=== PATIENT | male | born 1950 | race Caucasian/White ===

== ENCOUNTER 2019-01-25 07:37 | Outpatient (CLI) | payer BC ==
--- NOTE | 2019-01-25 08:39 | ULT ---
Exam: Right upper quadrant ultrasound: HISTORY: Right upper quadrant pain COMPARISON: CT, 01/26/2015 FINDINGS: Visualized liver:2.4 x 2.7 cm solid septated left lobe of liver cyst. Gallbladder:Multiple gallstones with some gallbladder wall thickening. Common bile duct:Within normal limits. Visualized pancreas is unremarkable. Multiple hypodensities noted involving the right kidney evidence for cysts including a complicated septated cyst in the mid kidney and what appears to be an old scar. No evidence for abscess or abnormal fluid collection in the right upper quadrant. IMPRESSION: Multiple cholelithiasis with some gallbladder wall thickening. No ductal dilatation. Liver and right renal cysts.
== END 2019-01-25 07:38 | disposition home or self-care (01) ==
LOC: ULT 07:37
PROVIDERS: ATTEND Internal Medicine
DX: R10.11 Right upper quadrant pain (principal); K80.20 Calculus of gallbladder without cholecystitis without obstruction; K82.8 Other specified diseases of gallbladder; N28.1 Cyst of kidney, acquired; K76.89 Other specified diseases of liver
CPT/HCPCS: 76705

== ENCOUNTER 2019-03-01 13:53 | Outpatient (CLI) | payer BC ==
[2019-03-01 15:28] LABS: #Eosinphils 0.1 thou/uL (0.0-0.7); #Lymphocytes 1.1 thou/uL (1.20-3.40); #Monocytes 0.6 thou/uL (0.11-0.59); #Neutrophils 6.1 thou/uL (1.40-6.50); %Basophils 0.4 % (0.0-1.0); %Eosinophils 0.9 % (0.0-10.0); %Lymphocytes 13.5 % (21.0-51.0); %Monocytes 7.2 % (0.0-10.0); Hemoglobin 14.2 g/dL (14.0-18.0); Mean Corpuscular HGB CONC 33.6 g/dL (32.0-36.0); Mean Corpuscular Hemoglobin 31.4 pg (27.0-31.0); Mean Corpuscular Volume 93.5 fL (78.0-98.0); Mean Platelet Volume 8.1 fL (7.4-10.4); Platelet Count 192 thou/uL (130-400); RBC Distribution Width 12.7 % (11.5-14.5); Red Blood Cell (RBC) Count 4.53 mill/uL (4.70-6.10); White Blood Cell (WBC) Count 7.8 thou/uL (4.8-10.8)
--- NOTE | 2019-03-01 15:39 | RAD ---
PA AND LATERAL VIEWS CHEST: Date: 03/01/19 HISTORY: Preoperative evaluation. FINDINGS: The heart size is normal. The aorta is tortuous. The lungs are expanded without focal areas of consol idation, pneumothoraces, or pleural effusions. There are degenerative changes in the spine. IMPRESSION: No radiographic evidence of acute cardiopulmonary process. POS: [facility]
[2019-03-01 15:46] LABS: ALT (SGPT) 25 U/L (8-55); AST (SGOT) 22 U/L (5-34); Albumin 4.3 g/dL (3.4-4.8); Alkaline Phosphatase 81 U/L (40-150); Anion Gap 13 mmol/L (10-20); BUN (Urea Nitrogen) 15 mg/dL (8.4-25.7); Bilirubin, Total 1.1 mg/dL (0.2-1.2); Calc. Creatinine Clearance 0 mL/min (70-130); Calcium 9.3 mg/dL (7.8-10.44); Carbon Dioxide 22 mmol/L (23-31); Chloride 107 mmol/L (98-107); Estimated GFR-MDRD 71; Globulin 2.4 g/dL (2.4-3.5); Glucose 99 mg/dL (80-115); Potassium 3.8 mmol/L (3.5-5.1); Protein, Total 6.7 g/dL (5.8-8.1); Sodium 138 mmol/L (136-145)
--- NOTE | 2019-03-03 13:15 | EKG ---
Test Reason : Blood Pressure : / mmHG Vent. Rate : 065 BPM Atrial Rate : 065 BPM P-R Int : 162 ms QRS Dur : 140 ms QT Int : 440 ms P-R-T Axes : 040 057 -01 degrees QTc Int : 457 ms Normal sinus rhythm Left bundle branch block Abnormal ECG When compared with ECG of 10-OCT-2016 03:33, Premature atrial complexes are no longer Present Left bundle branch block is now Present Confirmed by MELISSA GARCIA (2) on 03/03/2019 1:14:44 PM Referred By: CHARLA Confirmed By:MELISSA GARCIA
== END 2019-03-01 13:54 | disposition home or self-care (01) ==
LOC: LABBT 13:53
PROVIDERS: ATTEND Specialist
DX: Z01.818 Encounter for other preprocedural examination (principal); K80.20 Calculus of gallbladder without cholecystitis without obstruction
CPT/HCPCS: 71046; 80053; 85025; 93005; 93010

== ENCOUNTER 2019-03-04 07:21 | Day surgery (SDC) | payer BC ==
[2019-03-01 14:37] VITALS: BMI 25.7
[2019-03-04] MEDS ORDERED: Ketorolac Tromethamine 30 MG/ML VIAL ONE (07:49)
[2019-03-04] MEDS ORDERED: ceFAZolin Sodium (SDC) 2 GM/100 ML BAG ONE (07:49)
[2019-03-04] MEDS ORDERED: Bupivacaine/Epinephrine 0.25% 30 ML VIAL ONE (08:38)
[2019-03-04] MEDS ORDERED: Fentanyl 100 MCG/2 ML VIAL ONE (09:04)
[2019-03-04] MEDS ORDERED: SUGAMMADEX SODIUM 200 MG/2 ML VIAL ONE (10:23)
--- NOTE | 2019-03-04 20:20 | OP ---
DATE OF PROCEDURE: 03/04/2019 PREOPERATIVE DIAGNOSIS: Symptomatic cholelithiasis. POSTOPERATIVE DIAGNOSIS: Symptomatic cholelithiasis. PROCEDURE PERFORMED: Laparoscopic cholecystectomy. AUDIT [employer]ERKS SUPERVISOR: Flynn Shah, medical student. ANESTHESIA: General endotracheal. INDICATIONS: The patient is a 68-year-old white male. He presents with symptoms referable to his gallbladder and ultrasound-proven cholelithiasis. He is taken to the operative room at this time for laparoscopic cholecystectomy. DESCRIPTION OF OPERATION: Informed consent was obtained. The patient was taken to the operating room where general endotracheal anesthesia was obtained with the patient in the supine position. The abdomen was prepped with Betadine and draped in the usual sterile fashion. 0.25% Marcaine with epinephrine was infiltrated below the umbilicus and a 10 mm infraumbilical incision was created. A Veress needle was passed through this incision into the peritoneal cavity. A pneumoperitoneum was established using carbon dioxide up to a pressure of 15 mmHg. Local anesthetic was infiltrated and 3 additional 5 mm right upper quadrant incisions were created. Through the mid incision, a 5 mm port was passed into the peritoneal cavity. The camera was passed through this port and under direct vision, an 11 port was passed through the infraumbilical incision. The camera was replaced through this port, and under direct vision, 2 additional 5 mm ports were passed through the incisions already created. The gallbladder was grasped and retracted in a cephalad direction. Minimal adhesions were bluntly stripped away from the apex of the gallbladder, and the apex was retracted laterally and inferiorly. Careful dissection was carried out to the apex of the gallbladder to identify the cystic duct and cystic artery. These were each carefully dissected circumferentially. The duct was of normal caliber. Both the duct and the artery were divided between clips, leaving 2 on the side to remain within the abdomen. The gallbladder was then dissected out of the gallbladder fossa using electrocautery and removed through the infraumbilical port site. The fascia was closed with 0 Vicryl suture and a GraNee needle. The right upper quadrant was inspected and irrigated. All irrigant was aspirated. All ports and instruments were removed under direct vision. Pneumoperitoneum was carefully evacuated. Additional local anesthetic was infiltrated into each port site. The skin edges were approximated with 4-0 Monocryl subcuticular sutures, and Dermabond was placed externally. There were no complications. The patient tolerated the procedure well and was taken to the recovery room in stable condition. FINDINGS: The patient had a sclerotic thickened gallbladder with numerous gallstones. The duct was small and noninflamed. His preoperative liver function tests were within normal limits. Cholangiogram was not obtained. The operation was performed without difficulty, blood loss, or complications. The patient tolerated the procedure well, was taken to recovery room in stable condition. Job ID: [id number]
== END 2019-03-04 12:45 | disposition home or self-care (01) ==
LOC: SDC 07:21
PROVIDERS: ATTEND Specialist
PROC: 0FT44ZZ Resection of Gallbladder, Percutaneous Endoscopic Approach (ICD-10-PCS; principal; 2019-03-04)
DX: K80.10 Calculus of gallbladder with chronic cholecystitis without obstruction (principal); I10 Essential (primary) hypertension; J45.909 Unspecified asthma, uncomplicated; G43.909 Migraine, unspecified, not intractable, without status migrainosus; Z87.891 Personal history of nicotine dependence; Z79.899 Other long term (current) drug therapy
CPT/HCPCS: 88304; J0131; J0690; J1885; J3010

== ENCOUNTER 2019-08-24 01:12 | Observation (INO) | payer BC ==
[2019-08-24 01:33] LABS: #Basophils 0.1 thou/uL (0.0-0.2); #Eosinphils 0.2 thou/uL (0.0-0.7); #Lymphocytes 1.9 thou/uL (1.20-3.40); #Monocytes 0.7 thou/uL (0.11-0.59); #Neutrophils 5.6 thou/uL (1.40-6.50); %Basophils 1.2 % (0.0-1.0); %Eosinophils 2.8 % (0.0-10.0); %Lymphocytes 22.6 % (21.0-51.0); %Neutrophils 65.4 % (42.0-75.0); Hemoglobin 15.9 g/dL (14.0-18.0); Mean Corpuscular HGB CONC 33.5 g/dL (32.0-36.0); Mean Corpuscular Hemoglobin 31.5 pg (27.0-31.0); Mean Platelet Volume 8.4 fL (7.4-10.4); Platelet Count 200 thou/uL (130-400); RBC Distribution Width 12.3 % (11.5-14.5); Red Blood Cell (RBC) Count 5.03 mill/uL (4.70-6.10); White Blood Cell (WBC) Count 8.5 thou/uL (4.8-10.8)
[2019-08-24] MEDS ORDERED: Aspirin Chewable 81 MG TAB ONE (01:42)
[2019-08-24 01:52] LABS: ALT (SGPT) 29 U/L (8-55); AST (SGOT) 26 U/L (5-34); Albumin 4.5 g/dL (3.4-4.8); Alkaline Phosphatase 114 U/L (40-110); Anion Gap 12 mmol/L (10-20); BUN (Urea Nitrogen) 15 mg/dL (8.4-25.7); Bilirubin, Total 0.8 mg/dL (0.2-1.2); CK (CPK) 165 U/L (30-200); Calc. Creatinine Clearance 0 mL/min (70-130); Calcium 9.3 mg/dL (7.8-10.44); Carbon Dioxide 27 mmol/L (23-31); Chloride 107 mmol/L (98-107); Estimated GFR-MDRD 68; Globulin 2.8 g/dL (2.4-3.5); Glucose 92 mg/dL (80-115); Lipase 43 U/L (8-78); Potassium 3.5 mmol/L (3.5-5.1); Protein, Total 7.3 g/dL (5.8-8.1); Sodium 142 mmol/L (136-145)
[2019-08-24] MEDS ORDERED: Nitroglycerin 2% Ointment 1 INCH/1 GM Packet ONE (02:27)
[2019-08-24] MEDS ORDERED: Bisacodyl 5 MG TAB PO PRN (02:43)
[2019-08-24] MEDS ORDERED: Acetaminophen 325 MG TAB PO PRN (02:43)
[2019-08-24] MEDS ORDERED: Loratadine 10 MG TAB PO PRN (03:03)
--- NOTE | 2019-08-24 03:50 | HP ---
PRIMARY CARE PROVIDER: Dr. Brandon North. CHIEF COMPLAINT: Palpitations. HISTORY OF PRESENT ILLNESS: Mr. Winn is a pleasant 69-year-old gentleman, who was seen at [facility] on August 24, 2019. He reports that he had a normal coronary angiogram in 2007. He reports that he has had tachycardia over the last 2 years and has been started on a beta mickey. He reports that he has continued to have palpitations especially at nighttime after lying down for a few hours. He wakes up and after 15 minutes, the palpitations resolve. Over the last week, his palpitations have been more frequent. He has been checking his pulse on the pulse oximeter and found that his heart rate was rapidly fluctuating and there was skipped beats. He also reports chronic postnasal drip and cough at night. He denies any chest pain. He reports that he had some epigastric discomfort in the past, but not now. He also reports chest tightness in the past, but not in several months. He also reports waking up with bilateral feet numbness. REVIEW OF SYSTEMS: All systems were reviewed and found to be negative except for the pertinent positives mentioned above. PAST MEDICAL HISTORY: Hypertension. PAST SURGICAL HISTORY: Cholecystectomy, deviated nasal septum surgery and umbilical hernia surgery. FAMILY HISTORY: No family history of premature coronary artery disease. SOCIAL HISTORY: He is an ex-smoker. He denies alcohol use and recreational drug use. ALLERGIES: NO KNOWN DRUG ALLERGIES. CURRENT MEDICATIONS: 1. Losartan 100 mg daily. 2. Bisoprolol fumarate 10 mg daily inhaler. 3. Josy 180 mg daily. PHYSICAL EXAMINATION: GENERAL: On examination, Mr. Winn is awake and alert, not in acute distress. VITAL SIGNS: Blood pressure is 159/100, pulse 75, respiratory rate 14, and oxygen saturation 96% on room air. He is afebrile. EYES: No scleral icterus, no conjunctival pallor. ENT: Moist mucosal membranes. No oropharyngeal erythema or exudates. NECK: Supple, nontender, trachea is midline. RESPIRATORY: Accessory muscles of breathing are not active. Chest wall movements are symmetric bilaterally. LUNGS: Clear to auscultation without wheeze, rhonchi, or crepitations. CARDIOVASCULAR: S1 and S2 are heard, regular. Peripheral pulses palpable. ABDOMEN: Soft, nontender, bowel sounds are heard. NEUROLOGIC: Cranial nerves 2 through 12 are intact. MUSCULOSKELETAL: Power is 5/5 in all 4 extremities. SKIN: No rashes. LYMPHATIC: No cervical lymphadenopathy. PSYCHIATRIC: Normal mood, normal affect, the patient is oriented to person, place, and time. LABORATORY DATA: Mr. Winn's labs and investigations were reviewed. A 12-lead electrocardiogram shows normal sinus rhythm, no ST changes to suggest an acute coronary syndrome and premature ventricular complexes. Chest x-ray does not show any pulmonary infiltrates. He has an unremarkable CBC, D-dimer less than 0.27, mildly elevated alkaline phosphatase of 114, otherwise normal comprehensive metabolic profile and normal TSH. BNP and first troponin I are normal. ASSESSMENT AND PLAN: Mr. Winn is a pleasant 69-year-old gentleman, who was seen at [facility] on August 24, 2019. His problem list includes: 1. Palpitations: Etiology is unclear, he mainly describes them as occurring at nighttime. So far, he has had premature ventricular complexes, but no other arrhythmias have been picked up in the emergency room. He will be admitted to the hospital for further management. I will request 2D echocardiogram and Cardiology Service consultation. He may need further investigations down the road such as heart monitor. The patient currently denies any chest pain. Repeat troponins are pending. 2. Hypertension: Resume home medications, monitor vital signs and titrate antihypertensives as needed. 3. Elevated alkaline phosphatase: Mild elevation of alkaline phosphatase, will need to be rechecked as outpatient. LEVEL OF RISK: Moderate. LEVEL OF COMPLEXITY: Moderate. Many thanks for allowing me to participate in your patient's care. Please feel free to contact me with any questions or concerns. Job ID: [id number]
[2019-08-24 04:18] VITALS: BMI 26.5
[2019-08-24 05:05] LABS: Troponin I 0.013 ng/mL (< 0.028)
--- NOTE | 2019-08-24 07:37 | RAD ---
EXAM: Single view of the chest HISTORY: Chest pain COMPARISON: 10/10/2016 FINDINGS: Single view of the chest shows a normal sized cardiomediastinal silhouette. There is no dori dence of consolidation, mass, or pleural effusion. Degenerative changes are seen in the spine. IMPRESSION: No evidence of acute cardiopulmonary disease
[2019-08-24 08:08] LABS: Troponin I 0.012 ng/mL (< 0.028)
[2019-08-24] MEDS ORDERED: Bisoprolol Fumarate 5 MG TAB PO SCH (09:00)
[2019-08-24] MEDS: Losartan 25 MG TAB PO SCH (10:39)
[2019-08-24] MEDS ORDERED: Aspirin/APAP/Caffeine Tab (Excedrin Migraine) PO PRN ×2 (10:53→11:11)
--- NOTE | 2019-08-24 17:36 | PDOC.HOSPP ---
- Subjective Encounter Date: 08/24/19 Encounter Time: 17:25 Subjective: f/u for tachycardia and palpitations. Unclear etiology and telemetry not showing any evidence currently. No current sx. - Objective Vital Signs & Weight: Vital Signs (12 hours) Temp Pulse Resp BP BP Pulse Ox 08/24/19 15:25 98.9 F 61 19 141/81 H 98 08/24/19 11:15 98.2 F 72 19 127/72 98 08/24/19 10:42 97 08/24/19 08:00 97.6 F 66 18 125/74 125/74 97 Weight Weight 206 lb 9.6 oz I&O: 08/23/19 08/24/19 08/25/19 06:59 06:59 06:59 Intake Total 250 240 Balance 250 240 Result Diagrams: 08/24/19 01:24 08/24/19 01:24 Additional Labs: Laboratory Tests 08/24/19 08/24/19 08/24/19 01:24 01:24 01:24 Troponin I Less than 0.010 B-Natriuretic Peptide 84.0 TSH 3rd Generation 4.5852 08/24/19 08/24/19 04:25 07:18 Troponin I 0.013 0.012 B-Natriuretic Peptide TSH 3rd Generation Radiology Reviewed by me: Yes (Echo - EF 55-60%) EKG Reviewed by me: Yes (Tele - SR) Hospitalist ROS - Medication Medications: Active Medications Generic Name Dose Route Start Last Admin Trade Name Freq PRN Reason Stop Dose Admin Acetaminophen/Aspirin/Caffeine 2 tab 08/24/19 11:11 08/24/19 11:29 Excedrin Migraine PO 2 tab Q6H PRN Administration Migraine Headache Losartan Potassium 100 mg 08/24/19 09:00 08/24/19 10:39 Cozaar PO 100 mg DAILY AMEENA Administration - Exam General Appearance: NAD, awake alert Eye: PERRL, anicteric sclera ENT: normocephalic atraumatic, no oropharyngeal lesions Neck: supple, symmetric, no JVD, no thyromegaly, no lymphadenopathy Heart: RRR, no murmur, no gallops, no rubs, normal peripheral pulses Respiratory: CTAB, no wheezes, no rales, no ronchi, normal chest expansion Gastrointestinal: soft, non-tender, non-distended, normal bowel sounds, no palpable masses Extremities: no cyanosis, no clubbing, no edema Skin: normal turgor, no lesions Neurological: cranial nerve grossly intact, no new deficit Musculoskeletal: normal tone, normal strength, no muscle wasting Psychiatric: normal affect, A&O x 3 Hosp A/P (1) Palpitations Code(s): R00.2 - PALPITATIONS Status: Acute Plan: ? arrhythmia, telemetry monitoring, consider event monitor for outpt, continue Bisoprolol, Cardiology consult pending (2) HTN (hypertension) Code(s): I10 - ESSENTIAL (PRIMARY) HYPERTENSION Status: Chronic Qualifiers: Hypertension type: essential hypertension Qualified Code(s): I10 - Essential (primary) hypertension Plan: Stable, continue home BP regimen, serial monitoring - Plan out of bed/ambulate, DVT proph w/SCDs Stable currently Continue Bisoprolol/Losartan Await Cardiology input Consider Event Monitor Likely home in 24h
[2019-08-25 04:43] LABS: #Basophils 0.1 thou/uL (0.0-0.2); #Eosinphils 0.2 thou/uL (0.0-0.7); #Lymphocytes 1.5 thou/uL (1.20-3.40); #Monocytes 0.6 thou/uL (0.11-0.59); #Neutrophils 4.3 thou/uL (1.40-6.50); %Basophils 1.1 % (0.0-1.0); %Lymphocytes 22.9 % (21.0-51.0); %Monocytes 8.5 % (0.0-10.0); %Neutrophils 64.5 % (42.0-75.0); Hemoglobin 14.3 g/dL (14.0-18.0); Mean Corpuscular Volume 94.4 fL (78.0-98.0); Mean Platelet Volume 9.1 fL (7.4-10.4); Platelet Count 167 thou/uL (130-400); RBC Distribution Width 12.2 % (11.5-14.5); Red Blood Cell (RBC) Count 4.45 mill/uL (4.70-6.10); White Blood Cell (WBC) Count 6.7 thou/uL (4.8-10.8)
[2019-08-25 04:54] LABS: Anion Gap 11 mmol/L (10-20); BUN (Urea Nitrogen) 10 mg/dL (8.4-25.7); Calc. Creatinine Clearance 89 mL/min (70-130); Calcium 8.6 mg/dL (7.8-10.44); Carbon Dioxide 26 mmol/L (23-31); Chloride 107 mmol/L (98-107); Estimated GFR-MDRD 69; Glucose 81 mg/dL (80-115); Potassium 3.9 mmol/L (3.5-5.1); Sodium 140 mmol/L (136-145)
[2019-08-25] MEDS: Losartan 25 MG TAB PO SCH (07:47)
[2019-08-25 08:42] VITALS: TEMP 97.8
[2019-08-25] MEDS ORDERED: Non-Formulary Item 1 EACH (Losartan Potassium [Losartan Potassium] 1 TAB) PO SCH (09:00)
[2019-08-25] MEDS ORDERED: Non-Formulary Item 1 EACH (Fexofenadine Hcl [Allegra Allergy] 180 MG) PO SCH (09:00)
[2019-08-25] MEDS ORDERED: Bisoprolol Fumarate 5 MG TAB PO SCH (09:00)
[2019-08-25] MEDS ORDERED: BECLOMETHASONE DIPROPIONATE EA NARE SCH ×2 (09:00)
[2019-08-25] MEDS ORDERED: Meloxicam 15 MG TAB PO SCH (09:00)
[2019-08-25] MEDS ORDERED: BISOPROLOL FUMARATE 10 MG PO SCH (09:00)
[2019-08-25] MEDS ORDERED: Loratadine 10 MG TAB PO SCH (09:00)
[2019-08-25 13:16] VITALS: BP 170/88
--- NOTE | 2019-08-25 15:56 | DIS ---
DATE OF ADMISSION: 08/24/2019 DATE OF DISCHARGE: 08/25/2019 DISCHARGE DIAGNOSES: 1. Palpitations, likely due to premature ventricular contractions. 2. Hypertension, stable. 3. Seasonal allergies. CONSULTATIONS: Dr. Mejia with Cardiology Service. PERTINENT LABORATORY AND X-RAY FINDINGS: Complete metabolic profile within normal limits. Troponin I negative x3. BNP 84. TSH 4.59. CBC within normal limits. Portable chest x-ray dated 08/24/2019, showed no acute cardiopulmonary process. 2D transthoracic echocardiogram dated 08/24/2019, showed ejection fraction 55% to 60%. Mild mitral regurgitation. HOSPITAL COURSE: The patient was observed on the telemetry unit after initially presenting with palpitations. The patient underwent general metabolic screening with essentially negative findings. Serial cardiac biomarkers were negative x3 and telemetry monitoring did show evidence of recurring premature ventricular contractions. No specific tachycardia or tachyarrhythmia was documented. 2D transthoracic echocardiogram showed a preserved ejection fraction of 55% to 60% without regional wall motion abnormalities. Current recommendations are for outpatient event monitor to further attempt to document arrhythmias or tachyarrhythmias. The patient also instructed to follow up for outpatient sleep study. Overall, the patient did remain clinically stable during the hospital course, tolerating regular oral intake with stable vital signs. I have examined the patient at the time of discharge and discussed followup instructions. The patient verbalized understanding and in agreement, and ready for discharge on 08/25/2019. DISCHARGE MEDICATIONS: 1. Aspirin/acetaminophen/caffeine 2 capsules p.o. q.6 hours p.r.n. migraine headaches. 2. Beclomethasone 80 mcg two sprays in each naris daily. 3. Bisoprolol fumarate 10 mg p.o. daily. 4. Nexium 40 mg p.o. daily. 5. Josy 180 mg p.o. daily. 6. Losartan 100 mg p.o. daily. FOLLOWUP: The patient may follow up with his primary care provider, Dr. Brandon North. The patient may follow up with Dr. Florencio Olivo with Cardiology Service and to call his office for appointment, time, and date. CONDITION ON DISCHARGE: Stable. ACTIVITY: Ad-latrice. DIET: Heart healthy. SPECIAL INSTRUCTIONS: 1. Recommend outpatient sleep study. 2. Recommend outpatient event monitor. CODE STATUS: Full. DISPOSITION: Home on 08/25/2019. Job ID: [id number]
== END 2019-08-25 14:16 | disposition home or self-care (01) ==
LOC: ERS 01:12 → 2NO 02:12
PROVIDERS: ADMIT Internal Medicine; ATTEND Internal Medicine
DX: I49.3 Ventricular premature depolarization (principal); I10 Essential (primary) hypertension; J30.2 Other seasonal allergic rhinitis; I34.0 Nonrheumatic mitral (valve) insufficiency; Z87.891 Personal history of nicotine dependence; Z79.899 Other long term (current) drug therapy; R74.8 Abnormal levels of other serum enzymes
CPT/HCPCS: 36415; 71045; 80048; 80053; 82550; 83690; 83880; 84443; 84484; 85025; 85379; 93005; 93306; 96360; G0378

== ENCOUNTER 2022-04-25 07:59 | Outpatient (CLI) | payer MEDICARE, BC | END 2022-04-25 08:00 | disposition home or self-care (01) | LOC: TBSIIMAG 07:59 | PROVIDERS: ATTEND Urology | DX: R97.20 Elevated prostate specific antigen [PSA] (principal) | CPT/HCPCS: 72197; 82565 ==

== ENCOUNTER 2024-06-26 03:40 | Emergency (ER) | payer BC, MEDICARE ==
[2024-06-26 04:59] LABS: #Basophils 0.05 10x3/uL (0.0-0.2); %Basophils 0.7 % (0.0-1.0); %Eosinophils 2.8 % (0.0-10.0); %Lymphocytes 17.1 % (21.0-51.0); %Monocytes 7.7 % (0.0-10.0); %Neutrophils 71.3 % (42.0-75.0); Hematocrit 43.6 % (42.0-52.0); Hemoglobin 15.2 g/dL (14.0-18.0); Mean Corpuscular HGB CONC 34.9 g/dL (32.0-36.0); Mean Corpuscular Hemoglobin 33.3 pg (27.0-31.0); Mean Corpuscular Volume 95.6 fL (78.0-98.0); Mean Platelet Volume 10.5 fL (7.4-10.4); Platelet Count 177 10x3/uL (130-400); RBC Distribution Width 13.2 % (11.5-14.5); Red Blood Cell (RBC) Count 4.56 mill/uL (4.70-6.10)
[2024-06-26 05:14] LABS: ALT (SGPT) 29 U/L (8-55); AST (SGOT) 29 U/L (5-34); Albumin 3.8 g/dL (3.4-4.8); Alkaline Phosphatase 92 U/L (40-110); Anion Gap 12 mmol/L (10-20); BUN (Urea Nitrogen) 11 mg/dL (8.4-25.7); Bilirubin, Total 0.7 mg/dL (0.2-1.2); Calc. Creatinine Clearance 0 mL/min (70-130); Calcium 8.9 mg/dL (7.8-10.44); Carbon Dioxide 20 mmol/L (23-31); Chloride 107 mmol/L (98-107); Estimated GFR 90; Glucose 101 mg/dL (83-110); Protein, Total 7.8 g/dL (5.8-8.1); Sodium 135 mmol/L (136-145)
[2024-06-26] MEDS ORDERED: Losartan 25 MG TAB ONE (05:28)
[2024-06-26] MEDS ORDERED: hydrALAZINE 25 MG TAB ONE (05:28)
[2024-06-26 05:37] LABS: Troponin I Less than 0.010 ng/mL (< 0.028)
== END 2024-06-26 07:35 | disposition home or self-care (01) ==
LOC: ERS 03:40
DX: I10 Essential (primary) hypertension (principal); I44.7 Left bundle-branch block, unspecified; Z55.0 Illiteracy and low-level literacy; Z87.891 Personal history of nicotine dependence; Z79.899 Other long term (current) drug therapy
CPT/HCPCS: 36415; 70450; 80053; 84484; 85025; 93005